=== PATIENT | female | born 1950 | race Caucasian/White ===

== ENCOUNTER → 2019-09-13 | Outpatient (CLI) | payer MEDICARE, BC ==
--- NOTE | 2019-09-14 15:24 | MAM ---
EXAM DESCRIPTION: 3D Screening BILATERAL : Digital Mammography. CLINICAL HISTORY: 69 years Female ANNUAL SCREENING . No complaints. No personal history of breast cancer. Sister with breast cancer age 62. Remote family history of breast cancer. Menarche age 10. Childbirth age 14. Menopause age 35. No HRT. Lifetime risk of developing breast cancer (Tyrer-Cuzick model)(%): 8.8. COMPARISON: Baseline study at this facility. No prior reports available. TECHNIQUE: Bilateral CC and MLO projection full-field images, digital tomosynthesis mammographic technique. Bilateral digital 2-D full-field MLO images. CAD available for 2-D images. FINDINGS: The breast parenchymal density pattern is: Scattered areas of fibroglandular density. No skin thickening or nipple retraction. Solitary microcalcifications. Small right axillary lymph nodes. Posterior intramammary lymph node upper outer quadrant left breast. Focal asymmetry upper outer quadrant of the posterior third of the right breast at 10:00 approximately 9 cm from the nipple. No associated microcalcifications. No new focal, stellate mass or density, , and no suspicious microcalcifications bilaterally. IMPRESSION: BI-RADS CATEGORY: 0 - INCOMPLETE- Need additional imaging evaluation. FOLLOW-UP: Recall for additional imaging: Directed right breast ultrasound of the region of interest. Optional diagnostic right breast digital tomosynthesis depending on ultrasound findings.. Written communication concerning the IMPRESSION and Follow-up, will be mailed to the patient and referring health care provider. Electronically signed by: Sancho Powell MD 09/14/2019 3:22 PM CDT
== END ==
LOC: MAMMO 09:26
PROVIDERS: ATTEND Family Medicine
DX: Z12.31 Encounter for screening mammogram for malignant neoplasm of breast (principal)

== ENCOUNTER → 2019-10-27 | Outpatient (CLI) | payer MEDICARE, BC ==
--- NOTE | 2019-10-28 16:43 | US ---
EXAM DESCRIPTION: Breast,Right: Ultrasound. CLINICAL HISTORY: 69 yearsFemaleABNORMAL AND INCONCLUSIVE IMAGES. Focal asymmetry posterior right breast. COMPARISON: Bilateral screening digital breast tomosynthesis September 22. TECHNIQUE: Transcutaneous scanning of the right breast utilizing fuentes-scale and Doppler modes. Scanning performed by the transportation planner ; observation by Dr. Powell. FINDINGS: Scanning of the upper outer quadrant right breast. Tissue is predominantly fatty with minimal fibroglandular tissues at the region of interest. At the 10:00 position, 9 cm from the nipple, a circumscribed lymph node with hypoechoic margins and eccentric echogenicity located. Dimensions are 9.0 x 5.9 mm. Wider than tall orientation and posterior acoustic enhancement. Vascular hilum no dominant solid mass, no distinct cyst, no large calcifications. No overlying skin changes. IMPRESSION: Benign exam. Lymph node and fibroglandular tissues in the region of focal asymmetry. BIRAD CATEGORY: 2 BENIGN FINDINGS. RECOMMENDATIONS: FOLLOW UP: Return to routine digital bilateral mammographic screening, one year interval from September 2019. Written communication explaining the IMPRESSION and follow-up, will be mailed to the patient and referring health care provider. The FINDINGS and the FOLLOW-UP plan were reviewed in person with the patient after the examination. According to the [employer], yearly mammograms are recommended starting at age 40 and continuing as long as a woman is in good health. Any breast change noted on a breast self-exam should be reported promptly to the patient's healthcare provider. Breast MRI is recommended for women with an approximately 20-25% or greater lifetime risk of breast cancer, including women with a strong family history of breast or ovarian cancer and women who have been treated for Hodgkin's disease. A negative mammographic report should not delay tissue diagnosis in patients with significant clinical history or physical findings. Extremely dense breast tissue limits the sensitivity of digital mammography. Electronically signed by: Sancho Powell MD 10/28/2019 4:42 PM CDT
== END ==
LOC: MAMMO 08:00
PROVIDERS: ATTEND Family Medicine
DX: R92.8 Other abnormal and inconclusive findings on diagnostic imaging of breast (principal)